=== PATIENT | male | born 1960 | race American Indian/Alaskan Native ===

== ENCOUNTER 2021-07-23 08:04 | Day surgery (SDC) | payer OTHER ==
[2021-07-22 10:41] LABS: Hematocrit 41.8 % (35.5-45.6); Hemoglobin 13.3 gm/dl (11.8-15.2); Mean Corpuscular HGB Conc 32 % (32-34); Mean Corpuscular Volume 90 fl (84-94); Platelet Count 197 K/mm3 (140-440); Red Blood Count 4.62 M/mm3 (3.65-5.03); Red Cell Distribution Width 12.9 % (13.2-15.2)
[2021-07-22 11:00] LABS: BUN/Creatinine Ratio 15; Blood Urea Nitrogen 12 mg/dL (9-20); Calcium 9.1 mg/dL (8.4-10.2); Hemolysis Index 5
[2021-07-23] MEDS ORDERED: LACTATED RINGERS 1,000 ML ONE ×2 (08:27→13:02)
[2021-07-23] MEDS ORDERED: MAGNESIUM OXIDE 400 MG TAB PO ONE (08:42)
[2021-07-23] MEDS ORDERED: ONDANSETRON 4 MG/2 ML INJ IV PRN (08:43)
[2021-07-23] MEDS ORDERED: HYDROmorphone 1 MG/1 ML INJ IV PRN ×2 (08:43)
--- NOTE | 2021-07-23 08:44 | Anesthesia Day of Surgery ---
Anesthesia Day of Surgery - Day of Surgery Patient Examined: Yes Patient H&P Reviewed: Yes Patient is NPO: Yes
--- NOTE | 2021-07-23 08:45 | Anesthesia Consultation ---
Anesthesia Consult and Med Hx Date of service: 07/23/21 - Airway Anesthetic Teeth Evaluation: Good ROM Head & Neck: Adequate Mental/Hyoid Distance: Adequate Mallampati Class: Class III Intubation Access Assessment: Probably Good - Pre-Operative Health Status ASA Pre-Surgery Classification: ASA1 Proposed Anesthetic Plan: General - Pulmonary Hx Smoking: No Hx Sleep Apnea: No (ADAMARIS PRE SCREEN LOW RISK) - Cardiovascular System Hx Hypertension: No - Central Nervous System Hx Psychiatric Problems: No - Gastrointestinal Hx Gastroesophageal Reflux Disease: No - Hematic Hx Anemia: No Hx Sickle Cell Disease: No - Other Systems Hx Cancer: No Hx Obesity: No - Additional Comments Anesthesia Medical History Comments: Limited Angolan- at bedside
[2021-07-23] MEDS ORDERED: CELECOXIB 200 MG CAP PO NR (09:00)
[2021-07-23] MEDS ORDERED: ceFAZolin/STERILE WATER 2 GM/20 ML SYRINGE IV NR (09:00)
[2021-07-23] MEDS ORDERED: MIDAZOLAM 2 MG/2 ML INJ IV NR (09:00)
[2021-07-23] MEDS ORDERED: LACTATED RINGERS 1,000 ML IV SCH (09:00)
[2021-07-23] MEDS ORDERED: GABAPENTIN 300 MG CAP PO NR (09:00)
[2021-07-23] MEDS ORDERED: ACETAMINOPHEN 500 MG TAB PO ONE (09:00)
[2021-07-23] MEDS ORDERED: LIDOCAINE MPF (2%) 20 MG/1 ML VIAL 5 ML ONE (10:51)
[2021-07-23] MEDS ORDERED: dexAMETHasone 20 MG/5 ML VIAL ONE (10:51)
[2021-07-23] MEDS ORDERED: propofoL 200 MG/20 ML VIAL IV ONE (10:51)
[2021-07-23] MEDS ORDERED: ONDANSETRON 4 MG/2 ML INJ ONE (10:51)
[2021-07-23] MEDS ORDERED: ROCURONIUM 50 MG/5 ML INJ IV ONE (10:51)
[2021-07-23] MEDS ORDERED: fentaNYL 100 MCG/2 ML INJ ONE (10:53)
[2021-07-23] MEDS ORDERED: LIDOCAINE (1%) 10 MG/1 ML VIAL 20 ML MDV ONE (10:56)
[2021-07-23] MEDS ORDERED: BUPIVACAINE/PF (0.5%) 5 MG/1 ML 30 ML VIAL INFILTRATI ONE ×2 (10:56→13:32)
[2021-07-23] MEDS ORDERED: ePHEDrine SULFATE 50 MG/1 ML INJ ONE (12:16)
[2021-07-23] MEDS ORDERED: NEOSTIGMINE 10MG/10 ML INJ MDV ONE (13:04)
[2021-07-23] MEDS ORDERED: GLYCOPYRROLATE 0.4 MG/2 ML INJ ONE ×2 (13:04→13:47)
--- NOTE | 2021-07-23 13:17 | Short Stay Summary ---
Short Stay Documentation Date of service: 07/23/21 - History Principal diagnosis: bilateral inguinal hernias H&P: obtained from office - Allergies and Medications Current Medications: Allergies No Known Allergies Allergy (Verified 07/19/21 15:00) Home Medications Medication Instructions Recorded Confirmed Last Taken Type No Known Home Medications [No 07/19/21 07/19/21 Unknown History Reported Home Medications] Active Medications Cefazolin Sodium (Cefazolin/Sterile Water 2 Gm/20 Ml Syringe) 2 gm IV PREOP NR Stop: 07/23/21 20:00 Hydromorphone HCl (Hydromorphone 1 Mg/1 Ml Inj) 0.25 mg IV Q10MIN PRN PRN Reason: Pain, Moderate (4-6) Stop: 07/23/21 23:00 Hydromorphone HCl (Hydromorphone 1 Mg/1 Ml Inj) 0.5 mg IV Q10MIN PRN PRN Reason: Pain , Severe (7-10) Stop: 07/23/21 23:00 Lactated Ringer's (Lactated Ringers) 1,000 mls @ 125 mls/hr IV DIRECT SHANEKA Last Admin: 07/23/21 08:35 Dose: 125 mls/hr Documented by: Midazolam HCl (Midazolam 2 Mg/2 Ml Inj) 2 mg IV PREOP NR Stop: 07/23/21 23:59 - Brief post op/procedure progress note Date of procedure: 07/23/21 Pre-op diagnosis: left inguinal hernia Post-op diagnosis: other (bilateral inguinal hernias) Procedure: robotic assisted bilateral inguinal hernia repair with mesh Anesthesia: GETA, local Findings: bilateral direct inguinal hernias, left greater than right repaired with large 3d max mesh Surgeon: AQUILES TODD Breast Worker: FEDERICO CAMPA Estimated blood loss: minimal Pathology: none Condition: stable - Hospital course Hospital course: Pt observed in PACU and discharged to home in stable condition - Disposition Condition at discharge: Good Disposition: 01 HOME / SELF CARE / HOMELESS Short Stay Discharge Plan Additional Instructions: SEE PRINTED DISCHARGE INSTRUCTIONS Follow up with: PRIMARY CARE, [Primary Care Provider] - 7 Days AQUILES TODD DO [Staff Physician] - 14 Days Prescriptions: Gabapentin 300 mg PO BID #6 cap Ibuprofen [Motrin] 800 mg PO Q8HR PRN #30 tablet PRN Reason: Pain, Moderate (4-6) HYDROcodone/APAP 5-325 [[place] 5/325] 1 each PO Q6HR PRN #30 tablet PRN Reason: Pain , Severe (7-10)
[2021-07-23] MEDS ORDERED: LIDOCAINE (1%) 10 MG/1 ML VIAL 20 ML MDV INFILTRATI ONE (13:32)
[2021-07-23] MEDS ORDERED: WATER FOR IRRIG STERILE 1,500 ML BOTTLE IR ONE (13:32)
--- NOTE | 2021-07-23 13:47 | Post Anesthesia Evaluation ---
- Post Anesthesia Evaluation Patient Participated: Yes Airway Patent: Yes Stable Respiratory Function: Yes Nausea/Vomiting: No Temp > 96.8F: Yes Pain Manageable: Yes Adequeate Hydration: Yes Anesthesia Complications: No Block Receding Appropriately: Not Applicable Patient on Ventilator: No
--- NOTE | 2021-07-23 16:05 | Operative Report ---
Operative Report Operative Report: Date of procedure: 07/23/21 Pre-op diagnosis: left inguinal hernia Post-op diagnosis: other (bilateral inguinal hernias) Procedure: robotic assisted bilateral inguinal hernia repair with mesh Anesthesia: ALFAA, local Findings: bilateral direct inguinal hernias, left greater than right repaired with large 3d max mesh Surgeon: AQUILES TODD Weight Caller: FEDERICO CAMPA Estimated blood loss: minimal Pathology: none Condition: stable Hospital course: Pt observed in PACU and discharged to home in stable condition Condition at discharge: Good Disposition: 01 HOME / SELF CARE / HOMELESS HPI and indication: Patient is a 60-year-old male who was referred to the surgery clinic for evaluation of a bulge in his left groin. 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 On physical exam he was found to have a reducible left inguinal hernia. It was recommended that the hernia be repaired. All risks, benefits, alternatives to surgery were discussed. It was also discussed with the patient that if the hernia was found on the right that it can be repaired at the same time. The patient was agreeable. Consent obtained for robotic assisted left inguinal hernia repair with mesh, possible open, possible bilateral. Procedure in detail: Patient was identified in the preoperative area, take back to operating room placed on operative table in supine position. After anesthesia was induced both arms were tucked and all bony prominences padded appropriately. A Can catheter was sterilely placed by the circulating nurse. The abdomen and b/l groins were then prepped and draped in usual sterile fashion and a timeout performed. Local anesthetic was infiltrated to skin at the intended incision sites. A supraumbilical incision was made through which a Veress needle was inserted. Veress needle positioning was confirmed using saline drop test and the abdomen insufflated to 15 mmHg. Once the abdomen was insufflated, the Veress needle was removed and a 5 mm Optiview trocar was placed as incision. The abdomen is inspected there was no underlying injury to any of the abdominal structures. Patient was placed in Trendelenburg and the pelvis examined. There were bilateral inguinal hernias identified. At this point, an 8 mm right upper quadrant and left upper quadrant robotic trocars were then placed under direct visualization. The 5 mm supraumbilical trocar was removed and replaced with a 12 mm balloon trocar under direct visualization. A Ray-Vazquez was placed into the abdomen. The robot was then docked. A fenestrated bipolar was placed into arm #2 and a monopolar scissor in arm #1. The surgeon was then transferred to the console. First, I created a left sided preperitoneal flap. The peritoneum was scored approximately 5 to 6 cm from the hernia defect. The peritoneum was then incised from the midline to the ASIS. The preperitoneal flap was then developed in an avascular plane. I first defined the medial margin by dissecting to the pubic tubercle. The pubic tubercle was cleared of overlying fatty tissue using blunt dissection. I then created the lateral margin in a similar fashion. Great care was taken to avoid injury to any nerves. There was a direct inguinal hernia and the hernia sac along with a moderate amount of preperitoneal fat was gently reduced using blunt dissection and transecting cremasteric fibers with electrocautery. During the dissection, the cord structures were identified and protected. The cord structures and vas deferens were visualized throughout the entire dissection. Once the hernia sac was completely reduced, the peritoneal flap was checked for hemostasis. Any additional cremasteric fibers that were were tenting up the peritoneum were divided. Hemostasis was carefully ensured. Next, I created a right sided preperitoneal flap. The flap was created in the same fashion as the left side and connected in the midline to form one large preperitoneal flap. A small direct inguinal hernia was identified on the right side. The peritoneum was gently reduced and cord structures identified throughout the entire dissection. Once the dissection was complete, the preperitoneal flap was checked for hemostasis which was carefully ensured. The left sided hernia was repaired using a left medium 3D max mesh. The right- sided hernia was repaired using a right large 3D max mesh. Both pieces of mesh along with suture material was placed into the abdomen by the electrician's assistant. The mesh were positioned into the preperitoneal space in the usual fashion with overlap of the medial margins. The medial portion of the mesh was sutured to the pubic tubercle using an interrupted 2-0 Vicryl stitch. The lateral aspect of each mesh was sutured to the anterior lateral abdominal wall using a 2-0 Vicryl interrupted stitch. The meshes were seen to lay flat in the pocket with excellent coverage. An 18 Armenian Angiocath was inserted into the preperitoneal pocket in the left lower quadrant by the electrician's assistant surgeon. The peritoneum was then reapproximated using 3-0 running V-Loc stitch x2. The entirety of the mesh was covered with peritoneum. The robot was then undocked and the surgeon scrubbed back in. The remainder of the case was performed laparoscopically. All sharp materials along with a Ray-Vazquez were removed from the abdomen under direct visualization. The 12 mm port was removed and the fascia closed using a interrupted 0 Vicryl stitch. The abdomen was then slowly desufflated and the mesh was seen to lay flat in the preperitoneal space. The remaining trocars were removed. The Angiocath was used to evacuate any preperitoneal air. This was then removed. Skin incisions were once again infiltrated with local anesthetic. The skin incisions were approximated with 4-0 Monocryl subcuticular stitches and skin glue. At the end of the case all sponge, instrument, sharp counts were correct x2. Patient was awoken from anesthesia and Can catheter removed. Both testicles were palpated in the scrotum in anatomic position. The patient was taken to PACU in stable condition.
[2021-07-23 21:54] VITALS: BP 116/70
== END 2021-07-23 08:05 | disposition home or self-care (01) ==
LOC: OR 08:04
PROVIDERS: ATTEND Surgery
DX: K40.20 Bilateral inguinal hernia, without obstruction or gangrene, not specified as recurrent (principal); Z79.899 Other long term (current) drug therapy; Z98.890 Other specified postprocedural states; Z20.822 Contact with and (suspected) exposure to COVID-19
CPT/HCPCS: 36415; 49650; 80048; 85027; C1781; J0690; J1100; J1815; J2250; J2405; J2704; J2710; J3010; J3490; J7120; S2900; U0003